=== PATIENT | male | born 1970 | race Caucasian/White ===

== ENCOUNTER → 2018-12-30 06:57 | Day surgery (SDC) | payer OTHER ==
[~2018-12-30] VITALS: Ht 167.6 cm; Wt 102.5 kg
[~2018-12-30 06:57] MED LIST: LIPITOR40 MG PO; LISINOPRIL10 MG PO; TESTOST CYP IM; WELLBUTRIN SR150 MG PO
[2018-12-30 08:10] LABS: HEMATOCRIT 42.6 % (42.0-54.0); HEMOGLOBIN 14.1 g/dL (13.5-17.5); MCH 27.8 pg (26.0-34.0); MCHC 33.1 g/dL (31.0-37.0); MCV 83.9 fL (80.0-100.0); MEAN PLATELET VOLUME 10.8 fL (7.4-10.4); RBC 5.08 10x6/uL (4.20-6.10); RDW 14.7 % (11.5-14.5); WBC 10.4 10x3/uL (4.8-10.8)
[2018-12-30 08:59] VITALS: BP 132/95; Ht 167.6 cm; Wt 102.5 kg
--- NOTE | 2018-12-30 17:57 | NUR ---
1600 ALL DISCHARGE CRITERIA MET. ALL DC INSTRUCTIONS GIVEN. ABLE TO URINATE WITHOUT DIFFICULTY. TAKEN OUT VIA W/C TO VEHICLE WITH FAMILY. ADVISED TO CALL OR COME BACK IF ANY PROBLEMS.
--- NOTE | 2019-01-05 19:02 | OP ---
PATIENT NAME: SUNDEEP GOMEZ MEDICAL RECORD: [id number] :68 LOCATION:D.OPS ADMISSION DATE: SURGEON: MAURICE ROGERS MD DATE OF OPERATION: 12/30/2018 PREOPERATIVE DIAGNOSIS: Symptomatic ventral hernia. POSTOPERATIVE DIAGNOSIS: Symptomatic incarcerated ventral hernia. PROCEDURE: Open incarcerated ventral hernia repair with subfascial mesh (Ventralight ST mesh). SURGEON: Maurice Rogers MD ROTARY DRILLER PROSPECTING: None. BLOOD LOSS: Minimal. ANESTHESIA: General. COMPLICATIONS: None. The risks, possible complications, and alternatives to the procedure were explained to the patient. He elects to proceed. The discussion specifically included, but was not limited to, bleeding requiring emergency reoperation, infection, bowel injury. The incarcerated contents included omentum only. The ventral hernia, which was at the umbilicus, protruded out significantly and in order to get an adequate closure and to excise some of the skin and subcutaneous tissue overlying the hernia in order to allow for a closure that was acceptable. OPERATIVE COURSE: The patient was conveyed to the operating room electively on 12/30/2018. General anesthesia was induced by the anesthesia staff. The abdomen was sterilely prepped and draped. A midline incision was accomplished within the umbilicus. I dissected down into the hernia sac, which was large and contained omentum. I began to dissect the omentum off of the hernia sac. There was a great deal of omentum and some of it had to be removed. In between hemostats, I was able to tie off some of the omentum and then divided it distal to the clamps. I was then able to return all of the omentum into the peritoneal cavity. I excised some of the hernia sac with the electrocautery. I also excised some of the skin and subcutaneous tissue on either side of the midline incision. I sharply cleaned overlying connective tissue and hernia sac from the underlying fascial defect. I placed a Ventralight ST mesh in the subfascial position. I then sutured it to the surrounding fascial opening with the 2 tags the mesh is attached to. This was done with horizontal mattress 0 Surgidac sutures. I then closed the fascia over those with multiple interrupted horizontal mattress 0 Surgidacs. I then overran this hernia repair with a running #1 Vicryl. The subcutaneous tissues were closed and tacked down to the underlying fascial repair with a 3-0 Vicryl. The skin was closed with multiple interrupted 4-0 Vicryl Rapide sutures. A sterile dressing was applied. The patient was then extubated and conveyed to the post-anesthesia care unit, OPERATIVE REPORT [id number] SUNDEEP GOMEZ where he was in stable condition. He will be dismissed home with a narcotic analgesic. TRANSINT:[id number] Voice Confirmation ID: [id number] DOCUMENT ID: [id number] MAURICE ROGERS MD at 1902 CC: [id number] DICTATION DATE: 01/04/19 1628 [facility]: 01/04/19 2212 [facility] 12/30/[address] [facility] [address] [place] [address]
== END | disposition home or self-care (01) ==
LOC: D.OPS 06:57
PROVIDERS: Anesthesiology; ATTEND Surgery
DX: K43.6 Other and unspecified ventral hernia with obstruction, without gangrene (principal); Z01.812 Encounter for preprocedural laboratory examination

== ENCOUNTER 2019-12-17 00:04 | Emergency (ER) | payer OTHER ==
[~2019-12-17] VITALS: Ht 167.6 cm; Wt 86.4 kg
[2019-12-17 00:20] VITALS: Ht 167.6 cm; Wt 86.4 kg
[2019-12-17] MEDS ORDERED: CYCLOBENZAPRINE10 MG PO (00:54)
[2019-12-17 01:24] VITALS: BP 130/84
== END 2019-12-17 01:24 | disposition home or self-care (01) ==
LOC: D.ER 00:04
DX: S16.1XXA Strain of muscle, fascia and tendon at neck level, initial encounter (principal); S46.911A Strain of unspecified muscle, fascia and tendon at shoulder and upper arm level, right arm, initial encounter; E11.9 Type 2 diabetes mellitus without complications; M54.2 Cervicalgia; M25.511 Pain in right shoulder; V89.2XXA Person injured in unspecified motor-vehicle accident, traffic, initial encounter; Y93.9 Activity, unspecified; Y92.9 Unspecified place or not applicable